=== PATIENT | male | born 1945 | race Caucasian/White ===

== ENCOUNTER 2017-09-15 11:34 | Emergency (ER) | payer MEDICARE ==
[2017-09-15] MEDS ORDERED: Ticagrelor 90 MG Tab PO ONE (11:41)
[2017-09-15] MEDS ORDERED: Famotidine 20 MG/2 ML SDV IVPUSH ONE (11:41)
[2017-09-15] MEDS ORDERED: Metoprolol Tartrate 5 MG/5 ML SDV IVPUSH ONE (11:41)
--- NOTE | 2017-09-15 11:41 | EDM.PDOC ---
ED HPI GENERAL MEDICAL PROBLEM - General Chief Complaint: Chest Pain Stated Complaint: Chest Pain Time Seen by Provider: 09/15/17 11:35 Source of Information: Reports: Patient, EMS, Family (), Old Records ([facility] chart/EMR). 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 Note that saline lock, oxygen, and 4 baby aspirin chew and swallow were provided by the paramedics prior to arrival to this facility. 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 this morning falling onto the concrete on his left side with subsequent 6/10 sharp left chest wall pain, which is aggravated by palpation and also deep inspiration. He did feel somewhat dizzy shortly prior to onset of his syncopal episode with additional nonspecific dizziness at about 6 PM yesterday. The patient denies any other chest pain/pressure, heart flutter, orthostasis, orthopnea, diaphoresis, paresthesias, or any other anginal-type symptoms, however possible mild decreased exercise tolerance during the last 6 months. No recent history of abdominal pain, heartburn, nausea, diarrhea, melena, gross hematochezia, or any food intolerance, including fatty foods, etc.. The patient also denies any recent fever, cough, wheezing, dyspnea, etc.. No history of recent headaches, visual changes, diplopia, change in mental status, or other change in neurological status. The patient's was in the barn at the time of the above syncopal episode with no history of seizure activity, urine/stool incontinence, etc. Despite chest wall pain as above no history of head injury, significant neck/back pain, paresthesias, or other current complaints Onset: Today, Sudden, Unknown/Unsure Onset Date: 09/15/17 Onset Time: 09:30 Duration: Constant Location: Reports: Chest. Denies: Face, Neck, Abdomen, Back, Pelvis, Upper Extremity, Left, Upper Extremity, Right, Lower Extremity, Left, Radiates to Quality: Reports: Sharp Severity: Moderate Improves with: Reports: Rest Worsens with: Reports: Movement (As above) Context: Reports: Trauma (As above) Associated Symptoms: Reports: Syncope. Denies: Confusion, Chest Pain, Cough, Diaphoresis, Fever/Chills, Headaches, Loss of Appetite, Malaise, Nausea/Vomiting , Rash, Seizure, Shortness of Breath, Weakness Treatments BEAM WARPER: Reports: Aspirin, IV/IO, Oxygen Left Lower Chest Pain Score (Numeric/FACES): 6 - Related Data Allergies Allergy/AdvReac Type Severity Reaction Status Date / Time No Known Allergies Allergy Verified 09/15/17 11:40 Home Meds: Home Meds Albuterol [IJD: Albuterol HFA] 2 puff INH Q4HR PRN 09/15/17 [History] Aspirin 81 mg PO DAILY 09/15/17 [History] Fexofenadine HCl [Amanda Allergy] 60 mg PO DAILY PRN 09/15/17 [History] Metoprolol Succinate 25 mg PO DAILY 09/15/17 [History] Simvastatin [Zocor] 10 mg PO BEDTIME 09/15/17 [History] Past Medical History HEENT History: Reports: Allergic Rhinitis, Hard of Hearing, Impaired Vision, Other (See Below). Denies: Cataract, Glaucoma, Macular Degeneration, Retinal Detachment Other HEENT History: He wears glasses; bilateral presbycusis with no current therapy Cardiovascular History: Reports: Bypass, CAD, High Cholesterol, VT, Other (See Below). 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 Denies: PE, Pneumonia, Recurrent, Pneumothorax, Sleep Apnea Gastrointestinal History: Reports: Colon Polyp, Gastritis, GERD, Other (See Below). Denies: Celiac Disease, Cholelithiasis, Chronic Constipation, Chronic Diarrhea, Fecal Incontinence, GI Bleed, Hepatitis, Inflammatory Bowel Disease, Irritable Bowel Syndrome, Jaundice, Pancreatitis, PUD Other Gastrointestinal History: History of Dasilva's esophagitis; unknown type of colonic polyps excised by colonoscopy as below Genitourinary History: Reports: BPH. Denies: Acute Renal Failure, Chronic Renal Insuffiency, Renal Calculus, STD, Urinary Incontinence, UTI, Recurrent Musculoskeletal History: Reports: Arthritis, Back Pain, Chronic, Fracture, Osteoarthritis, Other (See Below). Denies: Amputation, Gout, Neck Pain, Chronic , Osteoporosis, RA, SLE Other Musculoskeletal History: Left wrist fracture in the early 1999s; right quadriceps tear requiring surgery as below Neurological History: Reports: None. Denies: Cerebral Aneurysms, Concussion, CVA, Headaches, Chronic, Head Trauma, Migraines, MS, Neuropathy, Peripheral, Parkinson's, Seizure, TIA Psychiatric History: Denies: Abuse, Victim of, ADD, ADHD, Addiction, Anxiety, Depression, Psych Hospitalization(s), PTSD, Suicide Attempt, Suicidal Ideation Endocrine/Metabolic History: Reports: Diabetes, Type II, Obesity/BMI 30+, Other (See Below). Denies: Diabetes, Type I, Hypothyroidism, IDDM Other Endocrine/Metabolic History: Borderline diabetes mellitus currently diet controlled Hematologic History: Denies: Anemia, B12 Deficiency, Blood Transfusion(s), Iron Deficiency Immunologic History: Reports: None. Denies: AIDS, SLE Oncologic (Cancer) History: Reports: None. Denies: Basal Cell Carcinoma, Colon , Hodgkin's Lymphoma, Leukemia, Lymphoma, Malignant Melanoma, Non-Hodgkin's Lymphoma, Prostate, Squamous Cell Carcinoma Dermatologic History: Reports: Eczema. Denies: Psoriasis - Infectious Disease History Infectious Disease History: Reports: Chicken Pox, Measles, Mumps. Denies: C- Difficile, Meningitis, Mononucleosis, MRSA, Pertussis (Whooping Cough), Rheumatic Fever, Rubella, Scarlet Fever, Shingles, TB, VRE - Past Surgical History Head Surgeries/Procedures: Reports: None HEENT Surgical History: Reports: Oral Surgery. Denies: Adenoidectomy, Cataract Surgery, Eye Surgery, Laser Surgery, LASIK, Myringotomy w Tube(s), Naso-Sinus Surgery, Tonsillectomy Other HEENT Surgeries/Procedures: Multiple teeth extractions including complete upper teeth instruction with patient wearing complete upper dentures Cardiovascular Surgical History: Reports: Coronary Artery Bypass, Other (See Below). Denies: Varicose Other Cardiovascular Surgeries/Procedures: CABG 3 on 12/17/98 Respiratory Surgical History: Reports: None. Denies: Lung Biopsies, Thoracentesis GI Surgical History: Reports: Colonoscopy, EGD, Hernia, Abdominal, Hernia, Inguinal, Polypectomy, Other (See Below). Denies: Appendectomy, Cholecystectomy , Hernia Repair/Other Other GI Surgeries/Procedures: Colonoscopy in about 2011 with polypectomy at that time; EGD in 2017; concurrent umbilical and bilateral inguinal hernia repairs in about 2001 Male Surgical History: Denies: Circumcision, TURP-Transurethral Resection of Prostate, Vasectomy Endocrine Surgical History: Reports: None. Denies: Thyroid Biopsy Neurological Surgical History: Reports: None. Denies: C-Spine, Discectomy, Laminectomy, Lumbar Spine, Sacral Spine, Spinal Fusion, Vertebroplasty Musculoskeletal Surgical History: Reports: Other (See Below). Denies: Arthroscopic Procedure, Carpal Tunnel, Ganglion Cyst, Joint Replacement, ORIF, Shoulder Surgery Other Musculoskeletal Surgeries/Procedures:: Right quadriceps repair in about 2001 Oncologic Surgical History: Reports: None Dermatological Surgical History: Reports: Skin Biopsy Other Dermatological Surgeries/Procedures: Multiple facial skin excisions for benign disease - Past Imaging History Past Imaging History: Reports: Angiography (12/17/98) Social & Family History - Family History HEENT: Reports: Macular Degeneration, Other (See Below). Denies: Glaucoma, Retinal Detachment Other HEENT Family History: Father with macular degeneration Cardiac: Reports: Arrhythmia, Bypass, CAD, Hypertension, VT, Pacemaker, Other ( See Below). Denies: Afib, Aneurysm, Blood Clots/VTE/DVT, Heart Failure, Heart Murmur, High Cholesterol, PVD/COD, Syncope Other Cardiac Family History: Mother with VT, average 2, arrhythmia, and pacemaker for unknown type of arrhythmia in her 80s; Brother with PTCA/stents in his 50s and separate occasions with subsequent CABG at age 73; son with WPW syndrome however likely inherited from maternal side of the family; brother with hypertension Respiratory: Reports: Asthma, Other (See Below). Denies: COPD, PE, Pneumothorax , Sleep Apnea Other Respiratory Family Hisory: Son with asthma GI: Reports: Colon Polyps, GERD, Other (See Below). Denies: Celiac Disease, Cholelithiasis, GI bleed, Inflammatory Bowel Disease, Irritable Bowel Syndrome, PUD Other GI Family History: Father with GERD and hiatal hernia; brother with unknown type of colonic polyps : Reports: None. Denies: Dialysis, Renal Calculus, Renal Disease/ Insufficiency OBGYN: Reports: None. Denies: Dysfunctional uterine bleeding, Endometriosis, Fibroids, Recurrent Spontaneous Musculoskeletal: Reports: Arthritis, RA, Other (See Below) Other Musculoskeletal Family History: Father with rheumatoid arthritis Neurological: Reports: CVA, Other (See Below). Denies: Alzheimers Disease, Cerebral Aneurysms, Dementia, Migraines, MS, Parkinson's, Seizure, TIA Other Neurological Family History: mother with CVA in her 90s Psychiatric: Reports: Anxiety, Depression, Other (See Below). Denies: Abuse, Victim of, ADD, ADHD, Psych Hospitalization(s), PTSD, Suicide Attempt Other Psychiatric Family History: Son with mild anxiety depression disorder Endocrine/Metabolic: Reports: Diabetes, type II, Other (See Below). Denies: Diabetes, Type I, Hypothyroidism, IDDM Other Endocrine/Metabolic Family History: Brother with diabetes mellitus Hematologic: Reports: None. Denies: Anemia, SLE Immunologic: Reports: None. Denies: AIDS, HIV, SLE Dermatologic: Reports: None. Denies: Eczema, Psoriasis Oncologic: Reports: Prostate, Other (See Below). Denies: Colon, Hodgkin's Lymphoma, Leukemia, Lymphoma, Metastatic, Non-Hodgkin's Lymphoma, Skin Other Oncologic Family History: Father with prostate cancer - Tobacco Use Smoking Status *Q: Never Smoker Smoking Cessation Information Provided To Patient: No Second Hand Smoke Exposure: No Second Hand Smoke Education Provided: No - Caffeine Use Caffeine Use: Reports: Coffee (4 cups per day and), Soda (1 Soda per week). Denies: Energy Drinks, Tea - Alcohol Use Alcohol Use History: Yes Days Per Week of Alcohol Use: 1 (No previous DWIs, problems with alcohol abuse, etc.) Number of Drinks Per Day: 1 (Usually beer or mixed drinks ) Total Drinks Per Week: 1 Alcohol Use in Last Twelve Months: Yes Alcohol Use Frequency: Rarely - Recreational Drug Use Recreational Drug Use: No Drug Use in Last 12 Months: No Recreational Drug Type: Denies: Amphetamines (Speed), Cocaine, Dextromethorphan (Cough Syrup), Heroin, Inhalants (Glues, Solvents, Aerosols), LSD (Acid), Marijuana/Hashish, Methamphetamine, Morphine - Living Situation & Occupation Living situation: Reports: (1974 with 2 children), with Family ( and daughter) Occupation: Employed ([employer]) ED ROS GENERAL - Review of Systems Review Of Systems: See Below Constitutional: Reports: Fatigue (Decreased exercise tolerance as above). Denies: Fever, Chills, Weakness, Night Sweats, Diaphoresis, Decreased Appetite, Weight Loss, Weight Gain HEENT: Reports: Glasses, Hearing Loss (Stable chronic), Vertigo. Denies: Dental Pain, Ear Discharge, Ear Pain, Eye Pain, Rhinitis, Sinus Problem, Throat Pain, Throat Swelling, Vision Change Respiratory: Reports: No Symptoms, Shortness of Breath, Wheezing, Pleuritic Chest Pain. Denies: Cough, Hemoptysis Cardiovascular: Reports: Chest Pain (Left chest wall pain), Blood Pressure Problem (Elevated on arrival), Dyspnea on Exertion (Possible decreased exercise tolerance as above), Lightheadedness, Syncope. Denies: Claudication, Edema, Orthopnea, Palpitations, PND Endocrine: Reports: Fatigue GI/Abdominal: Reports: No Symptoms. Denies: Abdominal Pain, Anorexia, Black Stool, Bloody Stool, Constipation, Diarrhea, Decreased Appetite, Distension, Hematochezia, Melena, Nausea, Stool Incontinence, Vomiting : Reports: No Symptoms. Denies: Discharge, Dysuria, Flank Pain, Frequency, Hematuria, Incontinence, Irregular Menses, Pain, Urgency, Urinary Retention Musculoskeletal: Reports: No Symptoms. Denies: Neck Pain, Shoulder Pain, Leg Pain Skin: Reports: No Symptoms. Denies: Diaphoresis, Bruising, Wound Neurological: Reports: Syncope. Denies: Confusion, Dizziness, Headache, Numbness, Paresthesia, Pre-Existing Deficit, Seizure, Trouble Speaking, Difficulty Walking, Weakness, Change in Speech, Gait Disturbance Psychiatric: Reports: No Symptoms. Denies: Agitation, Anxiety, Confusion, Depression, Hallucinations, Suicidal Ideation Hematologic/Lymphatic: Reports: No Symptoms Immunologic: Reports: No Symptoms ED EXAM, GENERAL - Physical Exam Exam: See Below Exam Limited By: No Limitations General Appearance: Alert, WD/WN, No Apparent Distress Eye Exam: Bilateral Eye: EOMI, Normal Fundi, Normal Inspection (No nystagmus), PERRL Ears: Normal External Exam, Normal Canal, Normal TMs, Hearing Loss (Stable mild/ moderate bilateral chronic hearing loss) Nose: Normal Inspection, Normal Mucosa, No Blood Throat/Mouth: Normal Inspection, Normal Lips, Normal Gums, Normal Oropharynx, Normal Voice, No Airway Compromise. No: Normal Teeth (Multiple missing teeth patient only having complete upper dentures which are not present today), Dysphagia, Perioral Cyanosis Head: Atraumatic, Normocephalic. No: Facial Swelling, Facial Tenderness, Sinus Tenderness Neck: Supple, Non-Tender, Full Range of Motion, Carotid Bruit (Mild bilateral carotid bruits). No: Lymphadenopathy (L), Lymphadenopathy (R), Thyromegaly Respiratory/Chest: No Respiratory Distress, Lungs Clear, Normal Breath Sounds, No Accessory Muscle Use. No: Chest Non-Tender (Mild to moderate left chest wall tenderness and palpation pain in the anterior, inferior lateral chest wall region near the anterior axillary line ), Pleural Rub, Retractions Cardiovascular: Normal Peripheral Pulses, Regular Rate, Rhythm, No Edema, No Gallop, No JVD, No Murmur, No Rub. No: Gallop/S3, Gallop/S4, Friction Rub Peripheral Pulses: 2+: Radial (L), Radial (R), Dorsalis Pedis (L), Dorsalis Pedis (R) GI/Abdominal: Normal Bowel Sounds, Soft, Non-Tender, No Organomegaly, No Distention, No Abnormal Bruit, No Mass, Pelvis Stable. No: Guarding (Male) Exam: Deferred Rectal (Males) Exam: Deferred Back Exam: Normal Inspection, Full Range of Motion. No: CVA Tenderness (L), CVA Tenderness (R), Muscle Spasm Extremities: Normal Inspection, Normal Range of Motion, Non-Tender, No Pedal Edema, Normal Capillary Refill, Other (Moderate hallux valgus bilaterally). No : Thair's Sign Neurological: Alert, Oriented, CN II-XII Intact, Normal Cognition, Normal Gait, Normal Reflexes (Negative Babinski's, finger to nose, and pronator rotation tests. No evidence of facial paresis, tongue deviation, orthostasis, etc.. Excellent reverse thought processes.), No Motor/Sensory Deficits Psychiatric: Normal Affect, Normal Mood Skin Exam: Warm, Dry, Intact, Normal Color, No Rash. No: Diaphoretic, Wound/ Incision Lymphatic: No Adenopathy EKG INTERPRETATION EKG Date: 09/15/17 Time: 11:49 Rhythm: NSR Rate (Beats/Min): 66 [place]: Normal P-Wave: Enlarged (Moderate diffuse biphasic P waves with poor R-wave progression in the anterior leads) QRS: RBBB (QRS interval of 0.14 seconds from his incomplete right bundle branch block with T-wave inversion in leads V1 and V2) ST-T: Other (As above) QT: Normal SC/PQ Interval: 0.16 seconds Course - Vital Signs Last Recorded V/S: Last Vital Signs Temp 36.6 C 09/15/17 11:35 Pulse 62 09/15/17 14:47 Resp 16 09/15/17 14:47 BP 161/76 H 09/15/17 14:47 Pulse Ox 100 09/15/17 14:47 Vital Signs - 24 hr 09/15/17 09/15/17 09/15/17 11:35 11:41 11:47 Temperature [ 36.6 C Oral] Pulse, 84 Peripheral Pulse, 73 65 Peripheral [ Pulse Oximetry] Respiratory 18 16 Rate Blood Pressure 168/86 H Blood Pressure 168/86 H 165/89 H [Right Upper Arm] O2 Sat by Pulse 100 100 Oximetry 09/15/17 09/15/17 09/15/17 12:05 12:24 13:10 Temperature [ Oral] Pulse, Peripheral Pulse, 63 63 65 Peripheral [ Pulse Oximetry] Respiratory 20 15 13 Rate Blood Pressure Blood Pressure 156/76 H 159/74 H 166/82 H [Right Upper Arm] O2 Sat by Pulse 100 100 100 Oximetry 09/15/17 09/15/17 09/15/17 13:25 13:40 14:10 Temperature [ Oral] Pulse, Peripheral Pulse, 61 61 63 Peripheral [ Pulse Oximetry] Respiratory 17 17 16 Rate Blood Pressure Blood Pressure 152/74 H 145/71 H 156/75 H [Right Upper Arm] O2 Sat by Pulse 100 100 100 Oximetry 09/15/17 14:47 Temperature [ Oral] Pulse, Peripheral Pulse, 62 Peripheral [ Pulse Oximetry] Respiratory 16 Rate Blood Pressure Blood Pressure 161/76 H [Right Upper Arm] O2 Sat by Pulse 100 Oximetry - Orders/Labs/Meds Orders: Active Orders 24 hr Category Date Time Status Cardiac Monitoring [RC] . DIRECTED Care 09/15/17 11:41 Active EKG Documentation Completion [RC] ASDIRECTED Care 09/15/17 11:41 Active Oxygen Therapy, ED [RC] CONTINUOUS Care 09/15/17 11:41 Active Peripheral IV Care [RC] . DIRECTED Care 09/15/17 11:41 Active Pulse Oximetry [RC] CONTINUOUS Care 09/15/17 11:41 Active Up With Assistance [RC] PFP Care 09/15/17 11:41 Active Vital Signs [RC] PFP Care 09/15/17 11:41 Active Chest PE [Ang Chest] [CT] Stat Exams 09/15/17 12:32 Taken Ribs 2V w Chest Lt [CR] Stat Exams 09/15/17 11:57 Taken Obtain Past Medical Record [OM.PC] Urgent Oth 09/15/17 11:41 Active Peripheral IV Insertion Adult [OM.PC] Stat Oth 09/15/17 11:41 Ordered Resuscitation Status Stat Resus Stat 09/15/17 11:41 Ordered Labs: Laboratory Tests 09/15/17 09/15/17 09/15/17 Range/Units 11:50 11:50 11:50 WBC 7.0 (4.0-10.2) K/uL RBC 4.23 L (4.33-5.41) M/uL Hgb 13.2 (13.1-16.8) g/dL Hct 40.3 (39.0-49.0) % MCV 95.3 (84.0-98.0) fL MCH 31.2 (28.2-33.3) pg MCHC 32.8 (31.7-36.0) g/dL RDW 13.9 (11.2-14.1) % Plt Count 162 (150-350) K/uL Neut % (Auto) 76.7 (45.0-80.0) % Lymph % (Auto) 12.6 (10.0-50.0) % [place] % (Auto) 8.3 (2.0-14.0) % Eos % (Auto) 2.3 (0.0-5.0) % Baso % (Auto) 0.1 (0.0-2.0) % Neut # (Auto) 5.36 (1.40-7.00) K/uL Lymph # (Auto) 0.88 (0.50-3.50) K/uL [place] # (Auto) 0.58 (0.00-1.00) K/uL Eos # (Auto) 0.16 (0.00-0.50) K/uL Baso # (Auto) 0.01 (0.00-0.20) K/uL PT 10.8 (9.8-11.7) SEC INR 1.0 APTT 23.3 (22.1-29.8) SEC D-Dimer, Quantitative 2980 H (0-400) ng/mL Sodium (136-145) mmol/L Potassium (3.5-5.1) mmol/L Chloride (98-107) mmol/L Carbon Dioxide (21.0-32.0) mmol/L BUN (7-18) mg/dL Creatinine (0.51-1.17) mg/dL Est Cr Clr Drug Dosing mL/min Estimated GFR (MDRD) mL/min Glucose (74-106) mg/dL Hemoglobin A1c (4.3-5.7) % Lactic Acid (0.4-2.0) mmol/L Uric Acid (2.6-7.2) mg/dL Calcium (8.5-10.1) mg/dL Magnesium (1.8-2.4) mg/dL Total Bilirubin (0.2-1.0) mg/dL AST (15-37) U/L ALT (12-78) U/L Alkaline Phosphatase (46-116) IU/L Creatine Kinase (26-308) U/L Creatine Kinase Index (0.0-2.5) % CK-MB (CK-2) (0.00-3.60) ng/mL Troponin I (0.000-0.056) ng/mL NT-Pro-B Natriuret Pep (0-125) pg/mL Total Protein (6.4-8.2) g/dL Albumin (3.4-5.0) g/dL TSH, Ultra Sensitive (0.358-3.740) mIU/mL 09/15/17 09/15/17 09/15/17 Range/Units 11:50 11:50 11:50 WBC (4.0-10.2) K/uL RBC (4.33-5.41) M/uL Hgb (13.1-16.8) g/dL Hct (39.0-49.0) % MCV (84.0-98.0) fL MCH (28.2-33.3) pg MCHC (31.7-36.0) g/dL RDW (11.2-14.1) % Plt Count (150-350) K/uL Neut % (Auto) (45.0-80.0) % Lymph % (Auto) (10.0-50.0) % [place] % (Auto) (2.0-14.0) % Eos % (Auto) (0.0-5.0) % Baso % (Auto) (0.0-2.0) % Neut # (Auto) (1.40-7.00) K/uL Lymph # (Auto) (0.50-3.50) K/uL [place] # (Auto) (0.00-1.00) K/uL Eos # (Auto) (0.00-0.50) K/uL Baso # (Auto) (0.00-0.20) K/uL PT (9.8-11.7) SEC INR APTT (22.1-29.8) SEC D-Dimer, Quantitative (0-400) ng/mL Sodium 140 (136-145) mmol/L Potassium 4.7 (3.5-5.1) mmol/L Chloride 106 (98-107) mmol/L Carbon Dioxide 29.3 (21.0-32.0) mmol/L BUN 20 H (7-18) mg/dL Creatinine 0.91 (0.51-1.17) mg/dL Est Cr Clr Drug Dosing 70.99 mL/min Estimated GFR (MDRD) > 60 mL/min Glucose 129 H (74-106) mg/dL Hemoglobin A1c 6.5 H (4.3-5.7) % Lactic Acid 1.1 (0.4-2.0) mmol/L Uric Acid 4.2 (2.6-7.2) mg/dL Calcium 8.8 (8.5-10.1) mg/dL Magnesium 1.9 (1.8-2.4) mg/dL Total Bilirubin 0.4 (0.2-1.0) mg/dL AST 19 (15-37) U/L ALT 27 (12-78) U/L Alkaline Phosphatase 52 (46-116) IU/L Creatine Kinase 114 (26-308) U/L Creatine Kinase Index 2.1 (0.0-2.5) % CK-MB (CK-2) 2.40 (0.00-3.60) ng/mL Troponin I 0.017 (0.000-0.056) ng/mL NT-Pro-B Natriuret Pep 566 H (0-125) pg/mL Total Protein 6.7 (6.4-8.2) g/dL Albumin 3.4 (3.4-5.0) g/dL TSH, Ultra Sensitive 1.900 (0.358-3.740) mIU/mL Meds: Medications Discontinued Medications Generic Name Dose Route Start Last Admin Trade Name Freq PRN Reason Stop Dose Admin Famotidine 40 mg 09/15/17 11:41 09/15/17 11:47 Pepcid IVPUSH 09/15/17 11:42 40 mg ONETIME ONE Administration Fentanyl 50 mcg 09/15/17 14:05 09/15/17 14:14 Sublimaze IVPUSH 09/15/17 14:06 50 mcg ONETIME ONE Administration Furosemide 40 mg 09/15/17 14:08 09/15/17 14:14 Lasix IVPUSH 09/15/17 14:09 40 mg NOW ONE Administration Iopamidol 100 ml 09/15/17 12:40 09/15/17 13:21 Isovue-370 (76%) IVPUSH 09/15/17 12:41 100 ml ONETIME ONE Administration Metoprolol Tartrate 2.5 mg 09/15/17 11:41 09/15/17 11:47 Lopressor IVPUSH 09/15/17 11:42 2.5 mg ONETIME ONE Administration Ondansetron HCl 4 mg 09/15/17 14:04 09/15/17 14:15 Zofran IVPUSH 09/15/17 14:05 4 mg ONETIME ONE Administration Sodium Chloride 10 ml 09/15/17 11:41 09/15/17 13:21 Saline Flush FLUSH 10 ml ASDIRECTED PRN Administration Keep Vein Open Ticagrelor 180 mg 09/15/17 11:41 09/15/17 11:47 Brilinta PO 09/15/17 11:42 180 mg ONETIME ONE Administration - Radiology Interpretation Free Text/Narrative:: 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 Possible left lower lobe atelectasis versus pulmonary contusion with no pneumothorax or rib fractures noted, however poor quality films secondary to portable procedure note status post medial sternotomy Telephone consultation at 13:47 hours with the radiology department at [facility] with pulmonary verbal report of CTA of the chest using PE protocol. Evaluation was negative for PE however incidental nondisplaced seventh rib fracture with additional stable T9 spinal process fracture and Janice T9 vertebral body fracture. Additional CHF and mild right pleural effusion noted with no significant pulmonary contusion in the left lower lobe despite chest x-ray findings as above CT Results Date: 09/15/17 CT Results Time: 13:47 Departure - Departure Time of Disposition: 14:50 Disposition: DC/Tfer to Acute Hospital 02 Reason for Transfer *Q: Other (Cardiology consultation by accepting providers) Condition: Fair Clinical Impression: Complete right bundle branch block, Peptic reflux disease, Elevated d-dimer Syncopal episodes Qualifiers: Syncope type: unspecified Qualified Code(s): R55 - Syncope and collapse Contusion of left chest wall Qualifiers: Encounter type: initial encounter Qualified Code(s): S20.212A - Contusion of left front wall of thorax, initial encounter Osteoarthritis Qualifiers: Osteoarthritis location: multiple joints Osteoarthritis type: primary Qualified Code(s): M15.0 - Primary generalized (osteo)arthritis COPD (chronic obstructive pulmonary disease) Qualifiers: COPD type: emphysema Emphysema type: panlobular Qualified Code(s): J43.1 - Panlobular emphysema CHF (congestive heart failure) Qualifiers: Congestive heart failure type: unspecified congestive heart failure type Congestive heart failure chronicity: acute Qualified Code(s): I50.9 - Heart failure, unspecified Diabetes mellitus Qualifiers: Diabetes mellitus type: type 2 Diabetes mellitus complication status: without complication Diabetes mellitus fci insulin use: without fci use Qualified Code(s): E11.9 - Type 2 diabetes mellitus without complications Coronary artery disease Qualifiers: Coronary Disease-Associated Artery/Lesion type: bypass graft, autologous vein Associated angina: without angina Qualified Code(s): I25.810 - Atherosclerosis of coronary artery bypass graft(s) without angina pectoris Closed T9 spinal fracture Qualifiers: Encounter type: initial encounter Fracture morphology: other fracture Qualified Code(s): S22.078A - Other fracture of T9-T10 vertebra, initial encounter for closed fracture Left rib fracture Qualifiers: Encounter type: initial encounter Rib fracture type: single rib Fracture type: closed Qualified Code(s): S22.32XA - Fracture of one rib, left side, initial encounter for closed fracture Referrals: PCP,Unobtain [Ordering Only Provider] - Forms: ED Department Discharge, Interfacility Transfer EMTALA - Problem List & Annotations (1) Syncopal episodes SNOMED Code(s): 822419385 Code(s): R55 - SYNCOPE AND COLLAPSE Status: Acute Priority: High Onset Date: 09/15/17 Annotation/Comment:: True syncopal episode of unknown etiology possibly cardiac in nature. No true chest pressure or other anginal-type symptoms, however chest pain protocol was initiated upon patient's arrival to the emergency room secondary to his recent history as above and known history of coronary artery disease. Telephone consultation at 13:[address] Boyd, hospitalist at the [facility], who does accept the patient for direct admission and further workup and treatment, with no further treatment recommendations given. Ambulance transfer with marketing communications specialist accompaniment Qualifiers: Syncope type: unspecified Qualified Code(s): R55 - Syncope and collapse (2) Coronary artery disease SNOMED Code(s): 41367484 Code(s): I25.10 - ATHSCL HEART DISEASE OF [place] CORONARY ARTERY W/O ANG PCTRS Status: Acute Priority: High Onset Date: ~12/17/98 Annotation/ Comment:: Known history of previous VT and distant CABG as above. He has been having recent decreased exercise tolerance with strong consideration of further cardiac workup, cardiology consultation, etc. including possible Cardiolite Stress test versus heart catheterization, etc. Recommend initiation of standard rule out VT orders. 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 Cardiogram planned by accepting physician. Consider GRACE inhibitor therapy secondary to his CHF and history of diabetes mellitus Qualifiers: Congestive heart failure type: unspecified congestive heart failure type Congestive heart failure chronicity: acute Qualified Code(s): I50.9 - Heart failure, unspecified (5) COPD (chronic obstructive pulmonary disease) SNOMED Code(s): 37066059 Code(s): J44.9 - CHRONIC OBSTRUCTIVE PULMONARY DISEASE, UNSPECIFIED Status : Chronic Priority: Medium Annotation/Comment:: Stable by history with no recent fever, bronchitic type symptoms, etc. Consider PFTs depending on his clinical course Qualifiers: COPD type: emphysema Emphysema type: panlobular Qualified Code(s): J43.1 - Panlobular emphysema (6) Contusion of left chest wall SNOMED Code(s): 34007903 Code(s): S20.212A - CONTUSION OF LEFT FRONT WALL OF THORAX, INITIAL ENCOUNTER Status: Acute Priority: High Onset Date: 09/15/17 Annotation/ Comment:: Chest wall contusion and very to minor fall as above. Note secondary nondisplaced left rib fracture as per the CT scan no pneumothorax, pulmonary contusion etc. Qualifiers: Encounter type: initial encounter Qualified Code(s): S20.212A - Contusion of left front wall of thorax, initial encounter (7) Diabetes mellitus SNOMED Code(s): 38111257 Code(s): E11.9 - TYPE 2 DIABETES MELLITUS WITHOUT COMPLICATIONS Status: Chronic Priority: Medium Annotation/Comment:: Known history of diabetes mellitus currently diet controlled. 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 Consider venous Doppler studies of the lower extremities (9) Osteoarthritis SNOMED Code(s): 140827270 Code(s): M19.90 - UNSPECIFIED OSTEOARTHRITIS, UNSPECIFIED SITE Status: Chronic Priority: Medium Annotation/Comment:: Other than acute fractures stable by history Qualifiers: Osteoarthritis location: multiple joints Osteoarthritis type: primary Qualified Code(s): M15.0 - Primary generalized (osteo)arthritis (10) Peptic reflux disease SNOMED Code(s): 51399461 Code(s): K21.9 - GASTRO-ESOPHAGEAL REFLUX DISEASE WITHOUT ESOPHAGITIS Status: Chronic Priority: Medium Annotation/Comment:: Stable by history with high-dose IV Pepcid given as GI prophylaxis (11) Closed T9 spinal fracture SNOMED Code(s): 361826133 Code(s): S22.079A - UNSP FRACTURE OF T9-T10 VERTEBRA, INIT FOR CLOS FX Status: Acute Priority: High Onset Date: 09/15/17 Annotation/Comment:: Stable fracture. IV no given as pain control. Orthopedic consultation depending on clinical course Qualifiers: Encounter type: initial encounter Fracture morphology: other fracture Qualified Code(s): S22.078A - Other fracture of T9-T10 vertebra, initial encounter for closed fracture (12) Left rib fracture SNOMED Code(s): 63832884 Code(s): S22.32XA - FRACTURE OF ONE RIB, LEFT SIDE, INIT FOR CLOS FX Status : Acute Priority: High Onset Date: 09/15/17 Annotation/Comment:: As above Qualifiers: Encounter type: initial encounter Rib fracture type: single rib Fracture type: closed Qualified Code(s): S22.32XA - Fracture of one rib, left side, initial encounter for closed fracture - Problem List Review Problem List Initiated/Reviewed/Updated: Yes - My Orders Last 24 Hours: My Active Orders 09/15/17 11:41 Cardiac Monitoring [RC] . DIRECTED EKG Documentation Completion [RC] ASDIRECTED Oxygen Therapy, ED [RC] CONTINUOUS Peripheral IV Care [RC] . DIRECTED Pulse Oximetry [RC] CONTINUOUS Up With Assistance [RC] PFP Vital Signs [RC] PFP Obtain Past Medical Record [OM.PC] Urgent Peripheral IV Insertion Adult [OM.PC] Stat Resuscitation Status Stat 09/15/17 11:57 Ribs 2V w Chest Lt [CR] Stat 09/15/17 12:32 Chest PE [Ang Chest] [CT] Stat - Assessment/Plan Last 24 Hours: My Active Orders 09/15/17 11:41 Cardiac Monitoring [RC] . DIRECTED EKG Documentation Completion [RC] ASDIRECTED Oxygen Therapy, ED [RC] CONTINUOUS Peripheral IV Care [RC] . DIRECTED Pulse Oximetry [RC] CONTINUOUS Up With Assistance [RC] PFP Vital Signs [RC] PFP Obtain Past Medical Record [OM.PC] Urgent Peripheral IV Insertion Adult [OM.PC] Stat Resuscitation Status Stat 09/15/17 11:57 Ribs 2V w Chest Lt [CR] Stat 09/15/17 12:32 Chest PE [Ang Chest] [CT] Stat Assessment:: As above Plan: As above. Extensive precautions were given to the patient and his , who are in agreement with the treatment plan.
[2017-09-15] MEDS: Sodium Chloride 0.9% 10 ML Syringe FLUSH PRN ×3 (11:48→13:21)
[2017-09-15 12:24] LABS: CHLORIDE,CL 106 mmol/L (98-107); SODIUM,NA 140 mmol/L (136-145)
[2017-09-15] MEDS ORDERED: Iopamidol 755 Mg/ML 100 ML Bottle IVPUSH ONE (12:40)
[2017-09-15] MEDS ORDERED: Ondansetron 4 MG/2 ML SDV IVPUSH ONE (14:04)
[2017-09-15] MEDS ORDERED: fentaNYL 100 MCG/2 ML SDV IVPUSH ONE (14:05)
[2017-09-15] MEDS ORDERED: Furosemide 40 MG/4 ML VIAL IVPUSH ONE (14:08)
== END 2017-09-15 14:50 ==
LOC: LL.ED 11:34
DX: I45.10 Unspecified right bundle-branch block (principal); S22.078A Other fracture of T9-T10 vertebra, initial encounter for closed fracture; S22.32XA Fracture of one rib, left side, initial encounter for closed fracture; S20.212A Contusion of left front wall of thorax, initial encounter; I25.810 Atherosclerosis of coronary artery bypass graft(s) without angina pectoris; I50.9 Heart failure, unspecified; E11.9 Type 2 diabetes mellitus without complications; K21.9 Gastro-esophageal reflux disease without esophagitis; M15.0 Primary generalized (osteo)arthritis; J43.1 Panlobular emphysema; R79.1 Abnormal coagulation profile; Z95.1 Presence of aortocoronary bypass graft; Z79.82 Long term (current) use of aspirin; Z79.899 Other long term (current) drug therapy; W19.XXXA Unspecified fall, initial encounter; Y93.K2 Activity, milking an animal
CPT/HCPCS: 36415; 71101; 71275; 80053; 82550; 82553; 83036; 83605; 83735; 83880; 84443; 84484; 84550; 85025; 85379; 85610; 85730; 93005; 96374; 96375; 99285; A9270; J1940; J2405; J3010; J7050; Q9967; 93010; J3490; S0028